=== PATIENT | female | born 1955 | race Two or more races ===

== ENCOUNTER 2018-05-09 10:25 | Outpatient (CLI) | payer OTHER | END 2018-05-09 10:30 | disposition home or self-care (01) | LOC: RAD 10:25 | DX: M25.531 Pain in right wrist (principal) ==

== ENCOUNTER 2018-05-12 07:37 | Outpatient (CLI) | payer OTHER | END 2018-05-12 07:53 | disposition home or self-care (01) | LOC: MAMO-SONO 07:37 | DX: Z12.31 Encounter for screening mammogram for malignant neoplasm of breast (principal); Z87.898 Personal history of other specified conditions; N60.99 Unspecified benign mammary dysplasia of unspecified breast ==

== ENCOUNTER 2018-12-05 07:18 | Outpatient (CLI) | payer OTHER | END 2018-12-05 07:28 | disposition home or self-care (01) | LOC: RAD 07:18 | DX: M25.561 Pain in right knee (principal); M25.562 Pain in left knee ==

== ENCOUNTER → 2019-11-21 | Outpatient (CLI) | payer OTHER | END | disposition home or self-care (01) | LOC: MRI 13:30 | DX: G35 Multiple sclerosis (principal); I63.30 Cerebral infarction due to thrombosis of unspecified cerebral artery | CPT/HCPCS: 70551 ==

== ENCOUNTER 2022-10-22 14:51 | Outpatient (CLI) | payer OTHER | END 2022-10-22 14:54 | disposition home or self-care (01) | LOC: RAD 14:51 | PROVIDERS: ATTEND General Practice | DX: M25.532 Pain in left wrist (principal) ==

== ENCOUNTER 2023-04-19 15:05 | Outpatient (CLI) | payer OTHER | END 2023-04-19 15:54 | disposition home or self-care (01) | LOC: RAD 15:05 | PROVIDERS: ATTEND Physical Medicine & Rehabilitation | DX: M25.572 Pain in left ankle and joints of left foot (principal); M79.672 Pain in left foot ==

== ENCOUNTER 2023-06-29 07:25 | Outpatient (CLI) | payer OTHER | END 2023-06-29 07:54 | disposition home or self-care (01) | LOC: MAMO-SONO 07:25 | PROVIDERS: ATTEND General Practice | DX: Z12.31 Encounter for screening mammogram for malignant neoplasm of breast (principal); N60.99 Unspecified benign mammary dysplasia of unspecified breast ==

== ENCOUNTER → 2023-07-12 | Outpatient (CLI) | payer OTHER | END | disposition home or self-care (01) | LOC: RAD 15:49 | PROVIDERS: ATTEND General Practice | DX: M54.40 Lumbago with sciatica, unspecified side (principal) ==

== ENCOUNTER 2024-11-16 14:33 | Outpatient (CLI) | payer OTHER | END 2024-11-16 14:38 | disposition home or self-care (01) | LOC: MAMO-SONO 14:33 | PROVIDERS: ATTEND General Practice | DX: N60.99 Unspecified benign mammary dysplasia of unspecified breast (principal); Z12.31 Encounter for screening mammogram for malignant neoplasm of breast ==